=== PATIENT | female | born 1955 | race Caucasian/White ===

== ENCOUNTER 2021-01-30 13:54 | Outpatient (CLI) | payer MEDICARE, SELFPAY ==
--- NOTE | ~2021-01-30 | DEXA_ITS ---
Bone Density Report Name: Ana Driver Age: 65 Sex: Female Ethnicity: White Date of : 1955 Indication: postmenopausal; prior fracture; Referring Provider: Alfredo, Samy Study: Bone densitometry was performed. Exam Date: January 30, 2021 Accession number: [id number] Bone Density: Region BMD T-score Z-score Classification AP Spine (L1-L4) 0.802 -2.2 -0.4 Osteopenia Femoral Neck (Left) 0.600 -2.2 -0.7 Osteopenia Total Hip (Left) 0.776 -1.4 -0.1 Osteopenia Total Hip Bilateral Avg 0.802 -1.1 0.1 Osteopenia Femoral Neck (Right) 0.565 -2.6 -1.0 Osteoporosis Total Hip (Right) 0.827 -0.9 0.3 Normal World Health Organization criteria for BMD impression classify patients as: Normal (T-score at or above -1.0), Osteopenia (T-score between -1.0 and -2.5), or Osteoporosis (T-score at or below -2.5). 10-year Fracture Risk: FRAX not reported because: Some T-score for Spine Total or Hip Total or Femoral Neck at or below -2.5 Clinical Information Provided by Patient: Has had a low trauma fracture Patient maximum height was 60 Menopause Age: 48 No regular weight bearing exercise Onset of menses at age 13 Number of children 1 Impression: The patient has established osteoporosis, based on the Right Femoral Neck T-score and the existence of a prior fracture. The patient has risk factors, including: previous fracture. Discussion: HIGH RISK OF FRACTURE. BONE DENSITY IS UNDESIRABLY LOW AT ONE OR MORE SKELETAL SITES, CONSISTENT WITH POSTMENOPAUSAL OSTEOPOROSIS. This patient's lowest T-score, in a patient who has previously fractured, meets the World Health Organization's (WHO) criteria for severe osteoporosis. In untreated patients, the risk of osteoporotic fracture increases approximately two-fold for each 1.0 SD decrease in T-score. Low bone density is not the only risk factor for fracture; also consider factors such as patient's age, frailty or poor health, risk of falling, risk of injury, previous osteoporotic fracture, family history of osteoporosis, cigarette smoking, low body weight, etc. Not everyone with low bone mineral density has osteoporosis; osteomalacia and other metabolic bone disorders should also be considered. Patients who have osteoporosis should be evaluated for specific diseases and conditions (secondary causes) that may cause or contribute to bone loss. The [place] [employer]ocrinologists (AACE) and National Osteoporosis Foundation (NOF) recommend pharmacologic intervention for all postmenopausal women whose T-score is in this range. The patient should follow a healthful lifestyle (good nutrition with adequate calcium and vitamin D, and appropriate weight-bearing exercise). Follow-Up: Consider a repeat BMD and Vertebral Fracture Assessment (VFA) exam in 2 years or sooner if medically neces
--- NOTE | ~2021-01-30 | MM_ITS ---
EXAMINATION: MM screening tita BI w bria HISTORY: Screening TECHNIQUE: Craniocaudal and mediolateral oblique 3-D tomosynthesis images were obtained and synthetic 2-D images were generated. CAD analysis was submitted and interpreted. COMPARISON: 08/02/2018 BREAST PARENCHYMAL COMPOSITION: There are scattered areas of fibroglandular density. FINDINGS: There is no evidence of suspicious mass, calcification, or architectural distortion to sugg est malignancy in either breast. There has been no suspicious interval change. IMPRESSION: 1. No mammographic evidence of malignancy. 2. Recommend routine screening mammography in one year. BI-RADS Category 1: Negative Reviewed, dictated and finalized at location A.
== END 2021-01-30 13:55 | disposition home or self-care (01) ==
LOC: ANHIMG 14:00
PROVIDERS: PCP Anesthesiology; Visit Provider Student in an Organized Health Care Education/Training Program
DX: Z12.31 Encounter for screening mammogram for malignant neoplasm of breast (principal); Z78.0 Asymptomatic menopausal state; M85.89 Other specified disorders of bone density and structure, multiple sites; M81.0 Age-related osteoporosis without current pathological fracture
CPT/HCPCS: 77063; 77067; 77080

== ENCOUNTER 2022-03-29 03:52 | Inpatient (IN) | payer MEDICARE, SELFPAY ==
[2022-03-29] VITALS (10 sets, daily range): BP systolic 145–160; BP diastolic 77–89; PULSE 59–102; RESP 18–24; TEMP 36.5–36.9; O2SAT 92–100; BMI 35.9
--- NOTE | ~2022-03-29 | XR_ITS ---
EXAMINATION: XR chest 1V portable INDICATION: Chest pain after fall TECHNIQUE: Portable AP chest at 0751 hours COMPARISON: 03/28/2015 FINDINGS: The right costophrenic angle is excluded. No pleural effusion or pneumothorax identified. T he lungs are free of acute opacities. The cardiomediastinal silhouette is normal. Suture anchors are noted in the right humeral head. IMPRESSION: 1. No acute cardiopulmonary abnormality. Reviewed, dictated and finalized at location A.
--- NOTE | ~2022-03-29 | XR_ITS ---
EXAMINATION: XR hip RT 2V w AP pelvis INDICATION: Right hip pain, initial encounter TECHNIQUE: AP view the pelvis and two views of the right hip are obtained. COMPARISON: None available FINDINGS: There is an acute, traumatic, closed, oblique fracture of the proximal femoral shaft extend ing posterolaterally from the lesser trochanter to the outer cortex of the proximal femur. The femora l head is well-seated in the acetabulum. No additional fracture is identified. IMPRESSION: 1. Acute oblique fracture of the right proximal femoral shaft. Reviewed, dictated and finalized at location A.
--- NOTE | ~2022-03-29 | XR_ITS ---
EXAMINATION: XR surgery orthopedic DATE: 03/30/2022 11:45 CDT INDICATION: right IT nail . TECHNIQUE: 7 fluoroscopic images of the right hip and femur were obtained during right IT the nail pl acement performed by the surgeon. I was not present in the operating room. Fluoroscopy exposure time was 234 seconds. Cumulative dose was 63.18 mGy. COMPARISON: X-ray right hip 03/29/2022. FINDINGS: IT nail and intramedullary tika fixation of the proximal right femoral fracture into near-anatomic ali gnment. IMPRESSION: Fluoroscopic documentation of right IT nail placement. Please refer to the operative note for complet e procedural details . Reviewed, dictated and finalized at location K. IMPRESSION: Fluoroscopic documentation of right IT nail placement. Please refer to the oper ative note for complete procedural details .
--- NOTE | 2022-03-29 07:30 | ECG_ITS ---
Measurements Intervals [place] Rate: 83 P: 52 MD: 146 QRS: -22 QRSD: 113 T: 33 QT: 417 QTc: 491 Interpretive Statements SINUS RHYTHM LOW QRS VOLTAGE IN PRECORDIAL LEADS [QRS DEFLECTION < 1.0 mV IN CHEST LEADS] POSSIBLE RIGHT VENTRICULAR CONDUCTION DELAY [RSR (QR) IN V1/V2] INFERIOR MYOCARDIAL INFARCTION , PROBABLY OLD WITH POSTERIOR EXTENSION [40+ ms Q WAVE AND/OR ST/T ABNORMALITY IN II/aVFPROMINE INCOMPLETE RIGHT BUNDLE-BRANCH BLOCK ABNORMAL ECG Electronically Signed On 03-29-2022 10:07:07 CDT by Demarco Ledezma M.D.
--- NOTE | 2022-03-29 07:40 | ED.FALL ---
HPI - Fall General Chief Complaint: Fall Stated Complaint: Hip Pain Time Seen by Provider: 03/29/22 07:03 History of Present Illness HPI Narrative: Patient is a 66-year-old female who presents ER status post fall. She was stepping off some concrete when she fell onto her right side. Sudden onset pain to the right hip. Did not strike her head or lose consciousness. No fevers or chills or sweats. No numbness or tingling to the affected extremity. Any type of movement causes extreme pain in the hip. Related Data Home Medications Medication Instructions Recorded Confirmed glipizide 2.5 mg tablet, extended 2.5 mg PO DAILY 03/29/22 03/29/22 release 24 hr naproxen sodium 220 mg tablet 440 mg PO DAILY PRN Headache 03/29/22 03/29/22 (Aleve) Allergies Allergy/AdvReac Type Severity Reaction Status Date / Time No Known Allergies Allergy Verified 03/29/22 09:57 Review of Systems Review of Systems: All systems reviewed & are unremarkable except as noted in HPI and below Constitutional: Constitutional: Denies chills, Denies fatigue and Denies fever(s) Cardiovascular: Cardiovascular: Denies chest pain, Denies rapid heart rate and Denies radiating jaw, neck or arm pain Respiratory: Respiratory: Denies cough and Denies dyspnea Gastrointestinal: Gastrointestinal: Denies abdominal pain, Denies nausea and Denies vomiting Musculoskeletal: Musculoskeletal: Denies back pain, Reports arthralgias and Denies joint swelling Neurologic: Denies syncope, Denies focal weakness and Denies numbness PMFSH Past Medical History Medical History (Updated 03/29/22 @ 19:06 by Nilton Kyle MD) Diabetes Surgical History Surgical History H/O repair of rotator cuff H/O tubal ligation History of cataract extraction History of elbow surgery History of tonsillectomy Family History Family History Mother Family history of type 2 diabetes mellitus Patient's mother is Father Patient's father is Acute myocardial infarction Social History Social History (Updated 03/29/22 @ 18:39 by Leah Gardner NP) Social History: the patient lives at home with her who is a durable power commercial attorney for healthcare. The patient has 1 child which is a daughter. 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 She drinks 6-8 drinks and about a week. She denies any marijuana or illicit drugs. Code status full code Smoking status: Never smoker Second hand tobacco smoke exposure: Yes (Spouse former smoker) Alcohol intake: current Drinks per week: 6 Substance use: never Spiritual care concerns: No Exam Narrative: GENERAL: Well-appearing, well-nourished, and in no acute distress. HEAD: Normocephalic, atraumatic. EYES: PERRL and EOMI. ENT: Mucous membranes moist. CHEST: Clear to auscultation. No respiratory distress. HEART: Regular rate and rhythm. Normal peripheral pulses. ABDOMEN: Soft, nontender, nondistended. EXTREMITIES: Tender palpation right hip with limited range of motion due to pain. No tenderness of the right knee or foot. Distal pulses intact as is sensation. No abnormalities to the upper extremities or left lower extremity. SKIN: Warm, dry, no rash. NEURO: No focal deficits. Alert and oriented x3. PSYCH: Normal mood and affect. Course Course Emergency Course: Admit to hospitalist. Orthopedic surgeon consulted. Vital Signs Vital signs: Vital Signs Temperature 97.7 F 03/29/22 03:52 Pulse Rate 59 L 03/29/22 03:52 Respiratory Rate 20 03/29/22 03:52 Blood Pressure 147/79 H 03/29/22 03:52 Pulse Oximetry 96 03/29/22 03:52 Oxygen Delivery Room Air 03/29/22 03:52 Temperature 98.4 F 03/29/22 14:57 Pulse Rate 102 H 03/29/22 14:57 Respiratory Rate 18 03/29/22 14:57 Blood Pressure 146/7
[2022-03-29] MEDS: MORPHINE SULFATE (*CRX) 4 MG/ML INJ IV PUSH ×4 (07:42→22:31)
[2022-03-29 07:47] LABS: Basophils Absolute Auto 0.1 K/mm3 (0.0-0.1); Basophils Percent Auto 0.5 % (0.2-1.2); Hematocrit 40.5 % (37.0-47.0); Hemoglobin 13.7 g/dL (12.0-15.0); Immature Granulocyte Absolute 0.09 K/mm3 (0.00-0.031); Immature Granulocyte Percent A 0.6 % (0-0.5); Immature Platelet Fraction Pct 18.1 % (0.9-11.2); Lymphocytes Percent Auto 9.9 % (18.3-44.2); Mean Corpuscular HGB Conc 33.8 g/dl (32-36); Mean Corpuscular Hemoglobin 32.1 pg (26-34); Mean Corpuscular Volume 94.8 fl (80-100); Mean Platelet Volume 12.9 fl (7.4-10.4); Monocytes Absolute Auto 0.9 K/mm3 (0.1-0.6); Monocytes Percent Auto 5.8 % (2.6-8.5); Neutrophils Absolute Auto 12.7 K/mm3 (1.3-6.7); Neutrophils Percent Auto 83.2 % (45.5-73.1); Platelet Count Result 169 k/mm3 (150-375); Red Blood Count 4.27 M/mm3 (4.2-5.4); Red Cell Distribution Width 12.7 % (11.5-14.5); White Blood Count 15.2 K/mm3 (4.5-10.0)
[2022-03-29 07:55] LABS: Prothrombin Time 13.2 Seconds (11.1-14.7)
[2022-03-29 07:56] LABS: Alanine Aminotransferase 47 U/L (6-35); Albumin Level 4.6 g/dL (3.5-5.1); Alkaline Phosphatase 94 U/L (38-126); Anion Gap 14 mmol/L (8-16); Aspartate Amino Transferase 46 U/L (14-36); Bilirubin,Total 0.3 mg/dL (0.2-1.3); Blood Urea Nitrogen 10 mg/dL (7-17); Calcium 8.8 mg/dL (8.4-10.2); Carbon Dioxide 22 mmol/L (22-30); Chloride 100 mmol/L (98-107); Estimated CRCL calculation 57 ml/min; Estimated Glomerular Filt Rate > 60; Glucose 186 mg/dL (65-110); Partial Thromboplastin Time 26.3 SECONDS (22.3-36.8); Sodium 136 mmol/L (137-145)
[2022-03-29 08:50] LABS: SARS-CoV-2 RNA PCR Negative
--- NOTE | 2022-03-29 09:53 | ADMGEN ---
This patient, Ana Driver, was admitted to [facility] Surg Room 322-01 at 0945. Patient/family oriented to hospital policies and general routines including ID bracelet, bed and alarms, visiting hours, pain management, procedures, bathroom and other care routines, personal items, smoking policy, room service/diet, and visiting hours. Information on how to activate the Rapid Response Team has been discussed. Patient/Family are encouraged to report perceived risks to care and to ask questions if they do not understand what they are told or what they should do.
[2022-03-29] MEDS: SODIUM CHLORIDE 0.9% IV 1,000 ML 125 ML IV CONT ×2 (10:28→20:11)
[2022-03-29 12:17] LABS: Glucose Point of Care 170 mg/dl (65-105)
[2022-03-29] MEDS: oxyCODONE/ACETAMINOPHEN (*CRX) 5-325 MG TABLET 1 TABLET PO (13:11)
--- NOTE | 2022-03-29 15:49 | PM.CNOR ---
Assessment and Plan Assessment and plan (1) Subtrochanteric fracture of right femur: Code(s): S72.21XA - Displaced subtrochanteric fracture of right femur, initial encounter for closed fracture Status: Acute Assessment and Plan: Displaced, comminuted subtrochanteric fracture of the right femur. Will benefit from ORIF with cephalomedullary nail. Risks, benefits, and alternatives discussed. Complex fracture prior pattern will likely require additional reduction techniques and likely need opening of the fracture through a lateral femoral exposure. History of Present Illness HPI Consult date: 03/29/22 Chief complaint: Intertrochanteric Fracture Right Hip Narrative: Patient complains of acute hip pain. Fell from standing height. Admitted through the emergency room for definitive managemenet. No previous hip pain. Uncomfortable at rest. No numbness, tingling, or other associated symptoms. Review of Systems Review of Systems: Denies loss of consciousness. All systems reviewed & are unremarkable except as noted in HPI and below PMFSH Past Medical History Medical History Diabetes Surgical History Surgical History History of elbow surgery History of tonsillectomy Family History Family History Mother Family history of type 2 diabetes mellitus Patient's mother is Father Patient's father is Acute myocardial infarction Social History Social History Smoking status: Never smoker Second hand tobacco smoke exposure: Yes (Spouse former smoker) Alcohol intake: current Drinks per week: 6 Substance use: never Spiritual care concerns: No Meds Home Medications and Allergies Home Medications Medication Instructions Recorded Confirmed Type glipizide 2.5 mg tablet, extended 2.5 mg PO DAILY 03/29/22 03/29/22 History release 24 hr naproxen sodium 220 mg tablet 440 mg PO DAILY PRN Headache 03/29/22 03/29/22 History (Aleve) Allergies Allergy/AdvReac Type Severity Reaction Status Date / Time No Known Allergies Allergy Verified 03/29/22 09:57 Vital Signs Vital Signs - 24 hr 03/29/22 03:52 03/29/22 08:30 03/29/22 08:31 Temperature 36.5 C Pulse Rate 59 L 86 79 Respiratory Rate 20 22 H 22 H Blood Pressure 147/79 H Pulse Oximetry 96 94 95 Oxygen Delivery Room Air 03/29/22 08:45 03/29/22 09:00 03/29/22 10:00 Temperature 36.9 C Pulse Rate 83 87 74 Respiratory Rate 22 H 24 H 18 Blood Pressure 160/89 H Pulse Oximetry 92 95 100 Oxygen Delivery 03/29/22 14:15 03/29/22 14:57 Temperature 36.9 C Pulse Rate 102 H Respiratory Rate 18 Blood Pressure 146/77 H Pulse Oximetry 99 99 Oxygen Delivery Room Air Exam Narrative: Lower extremity shortened and externally rotated. Moderate swelling. Const: General: alert and uncomfortable Nutritional Appearance: obese Orientation/consciousness: patient oriented x3 Eyes: General: appearance normal, both eyes and all related structures Resp: Effort & Inspection: normal respiratory effort GI: GI Palp: Yes Soft to palpation and No Guarding due to palpation present (GI) Urinary Catheter: Urinary Catheter: patent and draining and urine clear Skin: General skin exam: no rashes or lesions noted Neuro: Speech: normal speech Other: Wiggles toes well. Capillary refill brisk. Distal light touch sensation intact. Dorsalis pedis pulse palpable. Extrem: Other: No edema. Psych: Mental Status: mental status grossly normal Results Labs Result Diagrams: 03/29/22 07:36 03/29/22 07:36 Labs: Abnormal lab results 03/29/22 03/29/22 03/29/22 Range/Units 07:36 07:36 12:12 WBC 15.2 H (4.5-10.0) K
[2022-03-29 16:10] LABS: Glucose Point of Care 154 mg/dl (65-105)
--- NOTE | 2022-03-29 16:28 | WPDANESEPP ---
Anes - Eval Pre Procedure Procedure: ORIF RIGHT HIP FRACTURE Date/Time: 03/29/22 16:28 Surgeon: BORIS Preop Diagnosis: RIGHT HIP FRACTURE Pre Op Diagnosis: Intertrochanteric Fracture Right Hip Patient Data Age: 66 Gender: F Height: 1.52 m Weight: 83.4 kg Last Vital Signs Temp 98.4 F 03/29/22 14:57 Pulse 102 H 03/29/22 14:57 Resp 18 03/29/22 14:57 BP 146/77 H 03/29/22 14:57 Pulse Ox 99 03/29/22 14:57 O2 Del Method Room Air 03/29/22 14:15 Allergies Allergy/AdvReac Type Severity Reaction Status Date / Time No Known Allergies Allergy Verified 03/29/22 09:57 Home Medications Medication Instructions Recorded Confirmed Type glipizide 2.5 mg tablet, extended 2.5 mg PO DAILY 03/29/22 03/29/22 History release 24 hr naproxen sodium 220 mg tablet 440 mg PO DAILY PRN Headache 03/29/22 03/29/22 History (Aleve) Laboratory Tests 03/29/22 03/29/22 03/29/22 07:36 07:36 07:36 WBC 15.2 K/mm3 H K/mm3 (4.5-10.0) RBC 4.27 M/mm3 M/mm3 (4.2-5.4) Hgb 13.7 g/dL g/dL (12.0-15.0) Hct 40.5 % % (37.0-47.0) MCV 94.8 fl fl (80-100) MCH 32.1 pg pg (26-34) MCHC 33.8 g/dl g/dl (32-36) RDW 12.7 % % (11.5-14.5) Plt Count 169 k/mm3 k/mm3 (150-375) MPV 12.9 fl H fl (7.4-10.4) Immature Gran % (Auto) 0.6 % H % (0-0.5) Neut % (Auto) 83.2 % H % (45.5-73.1) Lymph % (Auto) 9.9 % L % (18.3-44.2) Millard % (Auto) 5.8 % % (2.6-8.5) Eos % (Auto) 0.0 % % (0-4.4) Baso % (Auto) 0.5 % % (0.2-1.2) Lymph # (Auto) 1.50 K/mm3 K/mm3 (0.9-3.2) Millard # (Auto) 0.9 K/mm3 H K/mm3 (0.1-0.6) Eos # (Auto) 0.0 K/mm3 K/mm3 (0-0.3) Baso # (Auto) 0.1 K/mm3 K/mm3 (0.0-0.1) Abs Immat Gran (auto) 0.09 K/mm3 H K/mm3 (0.00-0.031) Absolute Neuts (auto) 12.7 K/mm3 H K/mm3 (1.3-6.7) Absolute Nucleated RBC 0.0 K/mm3 K/mm3 (0.0-0.012) Nucleated RBC % 0.0 % % (0.0-0.2) % Immature Plt Fraction 18.1 % H % (0.9-11.2) PT 13.2 Seconds Seconds (11.1-14.7) INR 1.0 APTT 26.3 SECONDS SECONDS (22.3-36.8) Sodium 136 mmol/L L mmol/L (137-145) Potassium 4.0 mmol/L mmol/L (3.4-5.0) Chloride 100 mmol/L mmol/L (98-107) Carbon Dioxide 22 mmol/L mmol/L (22-30) Anion Gap 14 mmol/L mmol/L (8-16) BUN 10 mg/dL mg/dL (7-17) Creatinine 0.80 mg/dL mg/dL (0.7-1.0) Estim Creat Clear Calc 57 ml/min ml/min Estimated GFR > 60 (59 - ) Glucose 186 mg/dL H mg/dL (65-110) POC Capillary Glucose Calcium 8.8 mg/dL mg/dL (8.4-10.2) Total Bilirubin 0.3 mg/dL mg/dL (0.2-1.3) AST 46 U/L H U/L (14-36) ALT 47 U/L H U/L (6-35) Alkaline Phosphatase 94 U/L U/L (38-126) Total Protein 8.0 g/dL g/dL (6.3-8.2) Albumin 4.6 g/dL g/dL (3.5-5.1) SARS-CoV-2 RNA (RT-PCR) 03/29/22 03/29/22 03/29/22 08:00 12:12 16:03 WBC RBC Hgb Hct MCV MCH MCHC RDW Plt Count MPV Immature Gran % (Auto) Neut % (Auto) Lymph % (Auto) Millard % (Auto) Eos % (Auto) Baso % (Auto) Lymph # (Auto) Millard # (Auto) Eos # (Auto) Baso # (Auto) Abs Immat Gran (auto) Absolute Neuts (auto) Absolute Nucleated RBC Nucleated RBC % % Immature Plt Fraction PT INR APTT Sodium Potassium Chloride Carbon Dioxide
--- NOTE | 2022-03-29 18:10 | PM.IMHP ---
H&P: HPI History of Present Illness Date/Time: 03/29/22 18:10 Chief Complaint: right hip pain Narrative: this is a 66-year-old female patient he presented to ER status post fall. The patient was stepping off of a concrete step and was deeper than what she thought. The patient fell on her right side but did not hit her head. she did not lose consciousness. The patient was not able to get off the ground. she has and externally rotated right hip and shortened. White count 15.2. block causes 154. COVID was negative. hip and pelvis x-ray was read as acute oblique fracture of right proximal Femoral shaft. chest x-ray was read as no acute cardiopulmonary Abnormality. IV fluids were started. Orthopedic has been consulted and has already seen the patient. The plan is for surgery tomorrow. She was given morphine in the emergency room. Patient was initially admitted for observation and then changed to inpatient status. Review of Systems Review of Systems: See HPI All systems reviewed & are unremarkable except as noted in HPI and below Constitutional: Constitutional: Reports as per HPI and Reports no additional constitutional complaints Eyes: Eyes: Reports as per HPI and Reports no additional eye complaints ENT: Reports system reviewed and no additional complaints, except as documented and Reports Normal hearing present Cardiovascular: Cardiovascular: Reports no additional cardiovascular complaints Respiratory: Respiratory: Reports no additional respiratory complaints and Reports no additional respiratory complaints Gastrointestinal: Gastrointestinal: Reports as per HPI and Reports no additional gastrointestinal complaints Musculoskeletal: Musculoskeletal: Reports no additional musculoskeletal complaints Integumentary/Breasts: Skin/Breast: Reports system reviewed and no additional complaints, except as docu and Reports as per HPI Neurologic: Reports system reviewed and no additional complaints, except as documented, Reports as per HPI and Reports Normal hearing present Psychiatric: Psychiatric: Reports no additional psychiatric complaints and Reports as per HPI Endocrine: Endocrine: Reports no additional endocrine complaints Hematologic/Lymphatic: Hematologic/Lymphatic: Reports no additional hematologic/lymphatic complaints Allergic/Immunologic: Allergic/Immunologic: Reports no additional allergic/immunologic complaints [facility] Past Medical History Medical History (Updated 03/29/22 @ 18:42 by Leah Gardner NP) Diabetes Surgical History Surgical History H/O repair of rotator cuff H/O tubal ligation History of cataract extraction History of elbow surgery History of tonsillectomy Family History Family History Mother Family history of type 2 diabetes mellitus Patient's mother is Father Patient's father is Acute myocardial infarction Social History Social History (Updated 03/29/22 @ 18:39 by Leah Gardner NP) Social History: the patient lives at home with her who is a durable power deputy prosecuting attorney for healthcare. The patient has 1 child which is a daughter. 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 She drinks 6-8 drinks and about a week. She denies any marijuana or illicit drugs. Code status full code Smoking status: Never smoker Second hand tobacco smoke exposure: Yes (Spouse former smoker) Alcohol intake: current Drinks per week: 6 Substance use: never Spiritual care concerns: No Meds Home Medications and Allergies Home Medications Medication Instructions Recorded Confirmed Type glipizide 2.5 mg tablet, extended 2.5 mg PO DAILY 03/29/22 03/29/22 History release 24 hr naproxen sodium 220 mg tablet 440 mg PO DAILY PRN Headache 03/29/22 03/29/22 History (Jud)
[2022-03-29] MEDS: oxyCODONE/ACETAMINOPHEN (*CRX) 10-325 MG TABLET 1 TAB PO (20:11)
[2022-03-29 22:29] LABS: Glucose Point of Care 173 mg/dl (65-105)
[2022-03-30] VITALS (11 sets, daily range): BP systolic 126–168; BP diastolic 58–95; PULSE 68–94; RESP 15–24; TEMP 36–36.8; O2SAT 92–100
[2022-03-30] MEDS: SODIUM CHLORIDE 0.9% IV 1,000 ML 125 ML IV CONT (04:24)
[2022-03-30] MEDS: MORPHINE SULFATE (*CRX) 4 MG/ML INJ IV PUSH ×3 (04:25→10:24)
[2022-03-30 05:59] LABS: Basophils Absolute Auto 0.1 K/mm3 (0.0-0.1); Basophils Percent Auto 0.6 % (0.2-1.2); Eosinophils Percent Auto 0.2 % (0-4.4); Hematocrit 31.8 % (37.0-47.0); Hemoglobin 10.8 g/dL (12.0-15.0); Immature Granulocyte Absolute 0.03 K/mm3 (0.00-0.031); Immature Granulocyte Percent A 0.4 % (0-0.5); Immature Platelet Fraction Pct 16.3 % (0.9-11.2); Lymphocytes Absolute Auto 2.04 K/mm3 (0.9-3.2); Lymphocytes Percent Auto 23.9 % (18.3-44.2); Mean Corpuscular Hemoglobin 32.2 pg (26-34); Mean Corpuscular Volume 94.9 fl (80-100); Mean Platelet Volume 13.9 fl (7.4-10.4); Monocytes Absolute Auto 1.1 K/mm3 (0.1-0.6); Monocytes Percent Auto 12.4 % (2.6-8.5); Neutrophils Absolute Auto 5.3 K/mm3 (1.3-6.7); Neutrophils Percent Auto 62.5 % (45.5-73.1); Platelet Count Result 125 k/mm3 (150-375); Red Blood Count 3.35 M/mm3 (4.2-5.4); Red Cell Distribution Width 12.9 % (11.5-14.5); White Blood Count 8.5 K/mm3 (4.5-10.0)
[2022-03-30 06:13] LABS: Lactic Acid Reflex 0.9 mmol/L (0.7-2.0)
[2022-03-30 06:20] LABS: Alanine Aminotransferase 30 U/L (6-35); Albumin Level 3.3 g/dL (3.5-5.1); Alkaline Phosphatase 69 U/L (38-126); Anion Gap 7 mmol/L (8-16); Aspartate Amino Transferase 29 U/L (14-36); Bilirubin,Total 0.7 mg/dL (0.2-1.3); Blood Urea Nitrogen 11 mg/dL (7-17); CRP 4.1 mg/dL (<1.0); Calcium 8.2 mg/dL (8.4-10.2); Carbon Dioxide 24 mmol/L (22-30); Chloride 102 mmol/L (98-107); Estimated CRCL calculation 88 ml/min; Estimated Glomerular Filt Rate > 60; Glucose 168 mg/dL (65-110); Lactate Dehydrogenase 127 U/L (120-246); Magnesium 2.1 mg/dL (1.6-2.3); Potassium 3.7 mmol/L (3.4-5.0); Sodium 133 mmol/L (137-145)
[2022-03-30 06:56] LABS: Hemoglobin A1C 6.5 % (<5.7)
[2022-03-30 08:05] LABS: Glucose Point of Care 120 mg/dl (65-105)
[2022-03-30 08:47] LABS: Free T4 Free Thyroxine Reflex 1.18 ng/dL (0.78-2.19)
--- NOTE | 2022-03-30 09:40 | PM.IMPN ---
Progress Note: A&P Assessment and Plan (1) Subtrochanteric fracture of right femur: Code(s): S72.21XA - Displaced subtrochanteric fracture of right femur, initial encounter for closed fracture Status: Acute Assessment and Plan: Secondary to mechanical fall appreciate orthopedic surgery consultation planning for surgical intervention today supportive care. Analgesics available as needed continue Farrell catheter until patient is more mobile will need postoperative PT/OT postoperative wound care and DVT prophylaxis deferred to Orthopedic surgery (2) Diabetes: Code(s): E11.9 - Type 2 diabetes mellitus without complications Status: Acute Assessment and Plan: A1c is 6.5. Continue Accu-Cheks, sliding scale insulin, hypoglycemic protocol continue home glipizide (3) Normocytic anemia: Code(s): D64.9 - Anemia, unspecified Status: Acute Assessment and Plan: slight decline in H&H from presentation no active bleeding monitor H&H closely postoperatively Subjective Date/time seen: 03/30/22 09:40 Interval history: Date of service: 03/30/2022 Ana Driver is a 66-year-old female with a history of type 2 diabetes mellitus who is seen in follow-up for right hip fracture. She states she is doing as well as can be expected today. She complains of 8/10 pain in her right hip. she states her pain starts at the top of her knee and goes all the way up to the hip and describes it as a sharp sensation with any movements. she denies numbness or tingling of her lower extremities. She had a Farrell catheter placed last night because she was having pain with moving around to get on and off the bedpan. She has no issues with the Farrell catheter. Did not have dysuria or hematuria prior to Farrell placement. She denies abdominal pain, nausea, vomiting, fever, chills. No shortness of breath, cough, chest pain. Review of Systems Review of Systems: All systems reviewed & are unremarkable except as noted in HPI and below Exam Narrative: General: well-nourished, well-appearing 66-year-old female, sitting up in bed, comfortable, NARD Neuro: awake, alert and oriented x4, speech clear, no focal neuro deficits noted HEENMT: normocephalic, atraumatic, EOMI, sclerae anicteric Respiratory: clear to auscultation bilaterally, nonlabored breathing Cardio: regular rate, regular rhythm with S1-S2 Abdomen: nondistended, normoactive bowel sounds, soft, nontender to palpation Extremities: right hip is tender to palpation, bilateral lower extremities without edema, erythema, or tenderness to palpation, DP pulses 2+ bilaterally, able to wiggle toes bilaterally, sensation intact Skin: no rashes or lesions, warm and dry Psych: appropriate mood and affect, judgment and insight intact Objective Data Vital Signs Vital Signs: Vital Signs - 24 hr 03/29/22 10:00 03/29/22 14:15 03/29/22 14:57 Temperature 98.5 F 98.4 F Pulse Rate 74 102 H Respiratory Rate 18 18 Blood Pressure 160/89 H 146/77 H Pulse Oximetry 100 99 99 Oxygen Delivery Room Air 03/29/22 22:00 03/29/22 20:10 03/30/22 06:00 Temperature 98.0 F 96.8 F L Pulse Rate 87 102 H 88 Respiratory Rate 18 18 17 Blood Pressure 145/77 H 126/62 Pulse Oximetry 97 99 95 Oxygen Delivery Room Air Intake/Output Intake/Output: Intake & Output 03/27/22 03/28/22 03/29/22 03/30/22 23:59 23:59 23:59 23:59 Intake Total 1910 1200 Output Total 250 1625 Balance 1660 -425 Meds/Results Medications: Active Medications Generic Name Dose Route Start Last Admin Trade Name Freq PRN Reason Stop Dose Admin Dextrose 12.5 gm 03/29/22 18:11 Dextrose 50% 25 Gm/50 Ml Syringe IV PUSH PRN PRN Hypoglycemia Protocol Glipizide 2.5 mg 03/30/22 08:00 Glipizide Xl 2.5 Mg Tab.Er.24 PO DAILY@0800 KAYLIE Glucagon 1 mg 03/29/22 18:11 Glucagon For Inj 1 Mg Vial IM PRN PRN
--- NOTE | 2022-03-30 10:40 | PC.NURSE ---
To OR via bed.
--- NOTE | 2022-03-30 11:11 | P.PNAN_ITS ---
Anes - Eval Final PreProcedure Day of Procedure 03/30/22 11:11 Patient weight: obese Heart: regular rate and rhythm Lungs: clear to auscultation Airway: Mallampati scale class III Neurological: alert and oriented Last oral intake: >/= 8 hours ASA classification: III Emergent: no Anesthetic plan: proceed Anesthesia type and monitoring: general ETT and standard monitoring Results Review: All pre-operative results and documents have been reviewed as part of the pre- operative evaluation. Informed Consent: The patient's anesthetic plan and its attendant risks and benefits were discussed with the patient/family/POA. Questions were solicited and answers provided to the satisfaction of the patient/family/POA.
[2022-03-30] MEDS: ceFAZolin 2 GM/D5W 50 ML 2 GM/50 ML BAG IVPB ×2 (11:13→18:15)
--- NOTE | 2022-03-30 11:18 | WPDHPUPDATE1 ---
History and Physical Update Update Date/Time: 03/30/22 11:18 History and Physical has been reviewed, including an updated exam of the patient. There are NO changes in the patient's condition. Risks, benefits, and alternatives have been discussed and questions answered. Patient agrees to proceed with procedure.
--- NOTE | 2022-03-30 12:29 | SUR.OPER ---
patient arrives with maguire/surgeon aware of sediment and cloudy slight pink tints in u/a. received antibiotic no orders received.
[2022-03-30] MEDS: LACTATED RINGERS 1,000 ML 30 ML IV CONT (14:02)
[2022-03-30 14:08] LABS: Glucose Point of Care 164 mg/dl (65-105)
--- NOTE | 2022-03-30 14:16 | W.PM.PROC2 ---
Procedure Note - Detailed Date of Procedure 03/30/22 Pre-op Diagnosis Subtrochanteric Fracture Right Hip Post-op Diagnosis Same Procedure Performed ORIF right hip fracture with cephalomedullary nail. Surgeon Kunal Gonzalez MD Acoustic Warfare Analyst Teresa Harman PA-C Anesthesia General Findings Significant comminution. Posterior comminution. The fracture was a fairly high subtroch. Some distal extension. Obese. Very good bone quality. Reduction was very good with simple traction. However there was some remaining lateral and posterior comminution that was reduced with a percutaneous ball spike tool. Description of Procedure The patient was given a general anesthetic, then carefully placed in fracture table. Sterile prep and drape performed in the usual fashion. Sterile curtain was used. Gentle traction was utilized to reduce the fracture. Fluoroscopy was used to confirm anatomic reduction and a proper placement of the implants. A longitudinal incision was created at the tip of the trochanter. The deep fascia was incised. The cannulated awl was used to open the proximal femur. The guidewire was placed across the fracture. The reamer was used to open the canal. The gamma nail was placed across the fracture site. A separate incision was made for placement of the cannulated guide sleeve. The guide pin was placed in the center of the femoral head. Appropriate measurement was taken. The pin was over reamed. The screw was placed with excellent purchase. Distal locking screw was placed through the dynamic hole using perfect ely shoshone technique. The jig was removed. The wound was irrigated. The deep fascia was closed with #1 Vicryl suture followed by 2-0 Vicryl suture and mauricio. Sterile dressing was applied. The patient was transferred to the recovery room in stable condition. There were no complications. Implants Arthrex 360 mm long nail. 85 mm lag screw. One distal locking screw. Estimated Blood Loss -200.0 Urine Output -125.0 Drains No Pathology None sent Complications No immediate complications Condition Stable Disposition PACU [facility] Billing Surgery - Charge Forward: Surgery Billing
--- NOTE | 2022-03-30 14:55 | PC.NURSE ---
Back from OR via bed.
[2022-03-30] MEDS: oxyCODONE/ACETAMINOPHEN (*CRX) 10-325 MG TABLET 1 TAB PO ×2 (15:23→18:53)
[2022-03-30 16:42] LABS: Glucose Point of Care 204 mg/dl (65-105)
[2022-03-30] MEDS: INSULIN ASPART (*BKC) 100 UNITS/ML SUB-Q (17:05)
[2022-03-30] MEDS: SENNA/DOCUSATE SODIUM TABLET 2 TAB PO (17:07)
[2022-03-30] MEDS: FAMOTIDINE 20 MG TABLET PO (20:07)
[2022-03-30 20:27] LABS: Glucose Point of Care 192 mg/dl (65-105)
[2022-03-31] MEDS: oxyCODONE/ACETAMINOPHEN (*CRX) 5-325 MG TABLET 1 TABLET PO (01:16)
[2022-03-31] MEDS: ceFAZolin 2 GM/D5W 50 ML 2 GM/50 ML BAG IVPB ×2 (02:13→11:23)
[2022-03-31] MEDS: CYCLOBENZAPRINE HCL 10 MG TABLET PO ×2 (02:13→11:02)
[2022-03-31 03:41] VITALS: BP 123/58; PULSE 96; RESP 18; TEMP 37.3; O2SAT 93
[2022-03-31] MEDS: MORPHINE SULFATE (*CRX) 4 MG/ML INJ IV PUSH ×3 (03:45→23:34)
[2022-03-31 06:20] LABS: Hematocrit 29.4 % (37.0-47.0); Hemoglobin 9.6 g/dL (12.0-15.0); Immature Platelet Fraction Pct 16.7 % (0.9-11.2); Mean Corpuscular HGB Conc 32.7 g/dl (32-36); Mean Corpuscular Hemoglobin 31.9 pg (26-34); Mean Corpuscular Volume 97.7 fl (80-100); Mean Platelet Volume 13.5 fl (7.4-10.4); Platelet Count Result 132 k/mm3 (150-375); Red Blood Count 3.01 M/mm3 (4.2-5.4); Red Cell Distribution Width 12.9 % (11.5-14.5); White Blood Count 10.5 K/mm3 (4.5-10.0)
[2022-03-31 06:29] LABS: Anion Gap 7 mmol/L (8-16); Blood Urea Nitrogen 6 mg/dL (7-17); Calcium 8.1 mg/dL (8.4-10.2); Carbon Dioxide 27 mmol/L (22-30); Chloride 98 mmol/L (98-107); Estimated CRCL calculation 75 ml/min; Estimated Glomerular Filt Rate > 60; Glucose 158 mg/dL (65-110); Potassium 3.5 mmol/L (3.4-5.0); Sodium 132 mmol/L (137-145)
[2022-03-31 08:12] LABS: Glucose Point of Care 128 mg/dl (65-105)
[2022-03-31] MEDS: ENOXAPARIN 40 MG/0.4 ML SYRINGE SUB-Q (08:17)
[2022-03-31] MEDS: glipiZIDE XL 2.5 MG TAB.ER.24 PO (08:17)
[2022-03-31] MEDS: FAMOTIDINE 20 MG TABLET PO ×2 (08:17→20:30)
[2022-03-31] MEDS: oxyCODONE/ACETAMINOPHEN (*CRX) 10-325 MG TABLET 1 TAB PO ×3 (08:24→22:08)
[2022-03-31 08:25] VITALS: BP 149/58; PULSE 92; RESP 16; TEMP 36.7; O2SAT 98
[2022-03-31 10:00] VITALS: O2SAT 98
[2022-03-31 11:15] LABS: Glucose Point of Care 213 mg/dl (65-105)
[2022-03-31] MEDS: INSULIN ASPART (*BKC) 100 UNITS/ML SUB-Q (11:38)
[2022-03-31 12:00] VITALS: BP 131/61; PULSE 101; RESP 16; TEMP 36.6; O2SAT 96
--- NOTE | 2022-03-31 12:03 | PM.IMPN ---
Progress Note: A&P Assessment and Plan (1) Subtrochanteric fracture of right femur: Code(s): S72.21XA - Displaced subtrochanteric fracture of right femur, initial encounter for closed fracture Status: Acute (2) Diabetes: Code(s): E11.9 - Type 2 diabetes mellitus without complications Status: Acute Assessment and Plan: (3) Normocytic anemia: Code(s): D64.9 - Anemia, unspecified Status: Acute Plan 66-year-old female with a history of type 2 diabetes mellitus presented with fall, found to have right hip fracture, orthopedics was consulted, s/p ORIF right hip fracture with cephalomedullary nail POD#1 1)Right Hip Fracture 2/2 mechanical fall appreciate orthopedic surgery consultation s/p ORIF right hip fracture with cephalomedullary nail POD#1 post op care as per orthopedics Pain control PT/OT post op DVT ppx 2)Diabetes Mellitus: BG check TID AC And HS c/w meal time insulin Hold glipizide 3)Anemia: Post operative drop in H/H noted Will monitor No bleeding noted Recheck H/H in AM 4)DVT ppx:Lovenox 5)Code:Full 6)Dispo:pending improvement Subjective Date/time seen: 03/31/22 12:03 Interval history: s/p right hip repair, POD#1 No acute events overnight passing gas, tolerating PO Review of Systems Review of Systems: All systems reviewed & are unremarkable except as noted in HPI and below Constitutional: Constitutional: Reports no additional constitutional complaints Eyes: Eyes: Reports no additional eye complaints ENT: Reports system reviewed and no additional complaints, except as documented Cardiovascular: Cardiovascular: Reports no additional cardiovascular complaints Respiratory: Respiratory: Reports no additional respiratory complaints Gastrointestinal: Gastrointestinal: Reports no additional gastrointestinal complaints Musculoskeletal: Comments: right hip pain at surgical site Neurologic: Reports system reviewed and no additional complaints, except as documented Psychiatric: Psychiatric: Reports no additional psychiatric complaints Exam Const: General: comfortable and no acute distress HENMT: Mouth: Yes moist mucous membranes Eyes: Sclera: sclerae normal Pupils: Equal, round and reactive pupils present Neck: Neck: supple Resp: Effort & Inspection: normal respiratory effort Auscultation: clear to auscultation bilaterally Cardio: Rate: regular rate Rhythm: regular rhythm GI: GI Palp: Yes Soft to palpation Auscultation: normal bowel sounds Neuro: Speech: normal speech Extrem: Other: right hip dressing present C/D/I Psych: Mental Status: mental status grossly normal Objective Data Vital Signs Vital Signs: Vital Signs - 24 hr 03/30/22 14:02 03/30/22 14:15 03/30/22 14:30 Temperature 98.3 F Pulse Rate 77 68 72 Respiratory Rate 15 18 18 Blood Pressure 143/79 H 153/69 H 163/83 H Pulse Oximetry 99 100 100 Oxygen Delivery Simple Face Mask Simple Face Mask Room Air Oxygen Flow Rate 6 6 03/30/22 14:45 03/30/22 14:55 03/30/22 15:10 Temperature 97.8 F 97.9 F Pulse Rate 86 80 85 Respiratory Rate 16 18 16 Blood Pressure 139/95 H 151/80 H 168/76 H Pulse Oximetry 96 96 97 Oxygen Delivery Room Air Oxygen Flow Rate 03/30/22 15:40 03/30/22 16:40 03/30/22 20:03 Temperature 97.9 F 97.8 F 97.4 F L Pulse Rate 94 90 89 Respiratory Rate 18 16 24 H Blood Pressure 149/74 H 157/70 H 133/58 L Pulse Oximetry 97 98 92 Oxygen Delivery Oxygen Flow Rate 03/30/22 23:31 03/31/22 03:41 03/31/22 08:25 Temperature 97.7 F 99.2 F 98.1 F Pulse Rate 94 96 92 Respiratory Rate 18 18 16 Blood Pressure 136/66 123/58 L 149/58 H Pulse Oximetry 94 93 98 Oxygen Delivery Oxygen Flow Rate 03/31/22 09:24 03/31/22 10:00 Temperature Pulse Rate Respiratory Rate Blood Pressure Pulse Oximetry 98 Oxygen Delivery Room Air Room Air Oxygen Flow Rate Intake/Output Intake/Output: I
[2022-03-31 14:00] VITALS: BP 123/67; PULSE 94; RESP 16; TEMP 36.5; O2SAT 98
--- NOTE | 2022-03-31 14:45 | WPDANESPN ---
Anes - Prog Note Post-Op Date/Time: 03/31/22 14:45 Cardiovascular status: other Respiratory status: normal Airway patency: baseline Mental status: baseline Post-Op hydration status: other Vital Signs: Last Vital Signs Temp 97.8 F 03/31/22 12:00 Pulse 101 H 03/31/22 12:00 Resp 16 03/31/22 12:00 BP 131/61 03/31/22 12:00 Pulse Ox 96 03/31/22 12:00 O2 Del Method Room Air 03/31/22 10:00 O2 Flow Rate 6 03/30/22 14:15 Pain Score (VAS): 0/10 I/O: Intake & Output 03/30/22 03/31/22 03/31/22 23:59 07:59 15:59 Intake Total 1600 250 240 Output Total 100 725 Balance 1500 -475 240 Laboratory Tests 03/31/22 06:03 03/31/22 06:03 03/30/22 03/30/22 03/31/22 16:37 20:08 06:03 WBC 10.5 H RBC 3.01 L Hgb 9.6 L Hct 29.4 L MCV 97.7 MCH 31.9 MCHC 32.7 RDW 12.9 Plt Count 132 L MPV 13.5 H % Immature Plt Fraction 16.7 H Sodium Potassium Chloride Carbon Dioxide Anion Gap BUN Creatinine Estim Creat Clear Calc Estimated GFR Glucose POC Capillary Glucose 204 H 192 H Calcium 03/31/22 03/31/22 03/31/22 06:03 07:57 11:11 WBC RBC Hgb Hct MCV MCH MCHC RDW Plt Count MPV % Immature Plt Fraction Sodium 132 L Potassium 3.5 Chloride 98 Carbon Dioxide 27 Anion Gap 7 L BUN 6 L D Creatinine 0.60 L Estim Creat Clear Calc 75 Estimated GFR > 60 Glucose 158 H POC Capillary Glucose 128 H 213 H Calcium 8.1 L Post-procedural complaints: none Patient Feedback: Patient satisfied with anesthetic care.
--- NOTE | 2022-03-31 14:50 | PM.PNORT ---
Progress Note: A&P Additional Plan Postop day 1: ORIF right hip fracture with cephalomedullary nail. Patient tolerated procedure well. No complications. Pain manageable with pain medication. No numbness or tingling. Patient may be weight bearing as tolerated with a walker. She states she has a lot of help at home. Her and daughter live with her and can help. She would like to be discharged home with home health. This is reasonable. May remove Farrell catheter today. Ortho instructions: DOS 03/30/22 D/C home with home health nursing and PT. Follow up in office in 6 weeks with xrays. Please call if you have nay questions or concerns. Call office for apt: [facility] . Wound Care: remove mauricio at 2 weeks post op (03/13/22). Daily dressing changes until healed. PT: WBAT with walker. Continue exercises. DVT prophylaxis: Xarelto 10 mg daily for 30 days total. Pain medication: Percocet 5/325 Subjective Subjective Date/Time Seen: 03/31/22 14:50 Principal diagnosis: Hip fracture. Interval history: Patient resting comfortably in bed. Moderate pain. No calf pain. No other complaints. Working with PT at the time of my visit. Review of Systems Review of Systems: All systems reviewed & are unremarkable except as noted in HPI and below Exam Narrative: Overweight 66 y/o female. No acute distress. Resting comfortably in bed. Alert and oriented. Dressing dry and intact without drainage. Calf and thigh soft. ROM limited due to pain. No hematoma. Distal pulses palpable. Light touch sensation intact. No varicosities. Objective Data Vital Signs Vital Signs: Vital Signs - 24 hr 03/30/22 14:55 03/30/22 15:10 03/30/22 15:40 Temperature 97.8 F 97.9 F 97.9 F Pulse Rate 80 85 94 Respiratory Rate 18 16 18 Blood Pressure 151/80 H 168/76 H 149/74 H Pulse Oximetry 96 97 97 Oxygen Delivery 03/30/22 16:40 03/30/22 20:03 03/30/22 23:31 Temperature 97.8 F 97.4 F L 97.7 F Pulse Rate 90 89 94 Respiratory Rate 16 24 H 18 Blood Pressure 157/70 H 133/58 L 136/66 Pulse Oximetry 98 92 94 Oxygen Delivery 03/31/22 03:41 03/31/22 08:25 03/31/22 09:24 Temperature 99.2 F 98.1 F Pulse Rate 96 92 Respiratory Rate 18 16 Blood Pressure 123/58 L 149/58 H Pulse Oximetry 93 98 Oxygen Delivery Room Air 03/31/22 10:00 03/31/22 08:15 03/31/22 12:00 Temperature 97.8 F Pulse Rate 101 H Respiratory Rate 16 Blood Pressure 131/61 Pulse Oximetry 98 96 Oxygen Delivery Room Air Room Air Intake/Output Intake/Output: Intake & Output 03/28/22 03/29/22 03/30/22 03/31/22 23:59 23:59 23:59 23:59 Intake Total 1910 2900 490 Output Total 250 2015 725 Balance 1664 030 -403 Meds/Results Medications: Active Medications Generic Name Dose Route Start Last Admin Trade Name Freq PRN Reason Stop Dose Admin Acetaminophen 650 mg 03/30/22 14:50 Acetaminophen 325 Mg Tablet PO Q6H PRN Pain Rated 1-3 Cyclobenzaprine HCl 10 mg 03/30/22 14:50 03/31/22 11:02 Cyclobenzaprine Hcl 10 Mg Tablet PO 10 mg Q8H PRN Administration Muscle Spasm Dextrose 12.5 gm 03/29/22 18:11 Dextrose 50% 25 Gm/50 Ml Syringe IV PUSH PRN PRN Hypoglycemia Protocol Enoxaparin Sodium 40 mg 03/31/22 09:00 03/31/22 08:17 Enoxaparin 40 Mg/0.4 Ml Syringe SUB-Q 40 mg DAILY KAYLIE Administration Famotidine 20 mg 03/30/22 21:00 03/31/22 08:17 Famotidine 20 Mg Tablet PO 20 mg Q12HR KAYLIE Administration Glipizide 2.5 mg 03/30/22 08:00 03/31/22 08:17 Glipizide Xl 2.5 Mg Tab.Er.24 PO 2.5 mg DAILY@0800 KAYLIE Administration Glucagon 1 mg 03/29/22 18:11 Glucagon For Inj 1 Mg Vial IM PRN PRN Hypoglycemia Protocol Glucose 15 gm 03/29/22 18:11 Glucose Oral Gel 15 Gm Of Glucse In 37.5 Gm Tube PO PRN PRN Hypoglycemia Protocol Dextrose 1,000 mls @ 100 mls/hr 03/29/22 18:11 Dextrose 5% 1,000 Ml IVPB
[2022-03-31 16:40] LABS: Glucose Point of Care 147 mg/dl (65-105)
[2022-03-31 22:00] VITALS: BP 135/59; PULSE 95; RESP 20; TEMP 35.7; O2SAT 92
[2022-04-01 05:46] LABS: Basophils Absolute Auto 0.1 K/mm3 (0.0-0.1); Basophils Percent Auto 0.5 % (0.2-1.2); Eosinophils Percent Auto 0.1 % (0-4.4); Hematocrit 26.5 % (37.0-47.0); Hemoglobin 8.8 g/dL (12.0-15.0); Immature Granulocyte Absolute 0.06 K/mm3 (0.00-0.031); Immature Granulocyte Percent A 0.5 % (0-0.5); Immature Platelet Fraction Pct 17.1 % (0.9-11.2); Lymphocytes Absolute Auto 2.08 K/mm3 (0.9-3.2); Lymphocytes Percent Auto 18.8 % (18.3-44.2); Mean Corpuscular HGB Conc 33.2 g/dl (32-36); Mean Corpuscular Hemoglobin 32.1 pg (26-34); Mean Corpuscular Volume 96.7 fl (80-100); Mean Platelet Volume 13.5 fl (7.4-10.4); Monocytes Absolute Auto 1.5 K/mm3 (0.1-0.6); Monocytes Percent Auto 13.5 % (2.6-8.5); Neutrophils Absolute Auto 7.4 K/mm3 (1.3-6.7); Neutrophils Percent Auto 66.6 % (45.5-73.1); Platelet Count Result 134 k/mm3 (150-375); Red Blood Count 2.74 M/mm3 (4.2-5.4); White Blood Count 11.1 K/mm3 (4.5-10.0)
[2022-04-01 06:00] VITALS: BP 143/50; PULSE 96; RESP 20; TEMP 36.2; O2SAT 95
[2022-04-01 06:21] LABS: Anion Gap 8 mmol/L (8-16); Blood Urea Nitrogen 9 mg/dL (7-17); Calcium 8.3 mg/dL (8.4-10.2); Carbon Dioxide 28 mmol/L (22-30); Chloride 95 mmol/L (98-107); Estimated CRCL calculation 75 ml/min; Estimated Glomerular Filt Rate > 60; Glucose 198 mg/dL (65-110); Potassium 3.7 mmol/L (3.4-5.0); Sodium 131 mmol/L (137-145)
[2022-04-01 07:59] LABS: Glucose Point of Care 185 mg/dl (65-105)
[2022-04-01 08:15] VITALS: O2SAT 98
[2022-04-01] MEDS: oxyCODONE/ACETAMINOPHEN (*CRX) 5-325 MG TABLET 1 TABLET PO (08:23)
[2022-04-01] MEDS: ENOXAPARIN 40 MG/0.4 ML SYRINGE SUB-Q (08:24)
[2022-04-01] MEDS: FAMOTIDINE 20 MG TABLET PO ×2 (08:24→20:16)
[2022-04-01] MEDS: polyethylene glycoL 3350 17 GM POWD.PACK PO (08:24)
[2022-04-01] MEDS: SENNA/DOCUSATE SODIUM TABLET 2 TAB PO ×2 (08:24→17:25)
[2022-04-01 11:39] LABS: Glucose Point of Care 194 mg/dl (65-105)
[2022-04-01 14:00] VITALS: BP 117/46; PULSE 79; RESP 15; TEMP 35.8; O2SAT 98
--- NOTE | 2022-04-01 16:36 | PM.PNORT ---
Progress Note: A&P Additional Plan Postop day 2: ORIF right hip fracture with cephalomedullary nail. Patient tolerated procedure well. No complications. Pain manageable with pain medication better today. Farrell removed. Tolerating PT better today. No numbness or tingling. Patient may be weight bearing as tolerated with a walker. She states she has a lot of help at home. Her and daughter live with her and can help. She would like to be discharged home with home health. This is reasonable. She is okay for discharge from ortho stand point. Will send order for Xarelto and Percocet. Ortho instructions: DOS 03/30/22 D/C home with home health nursing and PT. Follow up in office in 6 weeks with xrays. Please call if you have nay questions or concerns. Call office for apt: [facility] . Wound Care: remove mauricio at 2 weeks post op (03/13/22). Daily dressing changes until healed. PT: WBAT with walker. Continue exercises. DVT prophylaxis: Xarelto 10 mg daily for 30 days total. Pain medication: Percocet 5/325 Subjective Subjective Date/Time Seen: 04/01/22 16:36 Interval history: Patient resting comfortably in bed. Pain with motion. She tolerated pain better today. Worked well with PT. No other complaints. Review of Systems Review of Systems: All systems reviewed & are unremarkable except as noted in HPI and below Exam Narrative: Overweight 66 y/o female. No acute distress. Resting comfortably in bed. Alert and oriented. Dressing dry and intact with minimal drainage. Calf and thigh soft. ROM limited due to pain. No hematoma. Distal pulses palpable. Light touch sensation intact. No varicosities. Objective Data Vital Signs Vital Signs: Vital Signs - 24 hr 03/31/22 22:00 04/01/22 06:00 04/01/22 08:15 Temperature 96.2 F L 97.2 F L Pulse Rate 95 96 Respiratory Rate 20 20 Blood Pressure 135/59 L 143/50 H Pulse Oximetry 92 95 98 Oxygen Delivery Room Air 04/01/22 14:00 Temperature 96.4 F L Pulse Rate 79 Respiratory Rate 15 Blood Pressure 117/46 L Pulse Oximetry 98 Oxygen Delivery Intake/Output Intake/Output: Intake & Output 03/29/22 03/30/22 03/31/22 04/01/22 23:59 23:59 23:59 23:59 Intake Total 191 2900 1580 1230 Output Total 2014 550 Balance 1660 885 999 680 Meds/Results Medications: Active Medications Generic Name Dose Route Start Last Admin Trade Name Freq PRN Reason Stop Dose Admin Acetaminophen 650 mg 03/30/22 14:50 Acetaminophen 325 Mg Tablet PO Q6H PRN Pain Rated 1-3 Cyclobenzaprine HCl 10 mg 03/30/22 14:50 03/31/22 11:02 Cyclobenzaprine Hcl 10 Mg Tablet PO 10 mg Q8H PRN Administration Muscle Spasm Dextrose 12.5 gm 03/29/22 18:11 Dextrose 50% 25 Gm/50 Ml Syringe IV PUSH PRN PRN Hypoglycemia Protocol Enoxaparin Sodium 40 mg 03/31/22 09:00 04/01/22 08:24 Enoxaparin 40 Mg/0.4 Ml Syringe SUB-Q 40 mg DAILY KAYLIE Administration Famotidine 20 mg 03/30/22 21:00 04/01/22 08:24 Famotidine 20 Mg Tablet PO 20 mg Q12HR KAYLIE Administration Glipizide 2.5 mg 03/30/22 08:00 03/31/22 08:17 Glipizide Xl 2.5 Mg Tab.Er.24 PO 2.5 mg DAILY@0800 KAYLIE Administration Glucagon 1 mg 03/29/22 18:11 Glucagon For Inj 1 Mg Vial IM PRN PRN Hypoglycemia Protocol Glucose 15 gm 03/29/22 18:11 Glucose Oral Gel 15 Gm Of Glucse In 37.5 Gm Tube PO PRN PRN Hypoglycemia Protocol Dextrose 1,000 mls @ 100 mls/hr 03/29/22 18:11 Dextrose 5% 1,000 Ml IVPB PRN PRN Hypoglycemia Protocol Insulin Aspart 2 - 5 units 03/30/22 08:00 04/01/22 11:49 Insulin Aspart (*Bkc) 100 Units/Ml SUB-Q Not Given TIDWM KAYLIE Protocol Morphine Sulfate 2 mg 04/01/22 13:55 Morphine Sulfate (*Crx) 4 Mg/Ml Inj IV PUSH Q4H PRN Pain Rated 7-10 Ondansetron HCl 4 mg 04/01/22 13:55 Ondansetron Inj 4 Mg/2 Ml Vial IV PUSH
[2022-04-01 16:49] LABS: Glucose Point of Care 185 mg/dl (65-105)
--- NOTE | 2022-04-01 17:10 | PM.IMPN ---
Progress Note: A&P Assessment and Plan (1) Subtrochanteric fracture of right femur: Code(s): S72.21XA - Displaced subtrochanteric fracture of right femur, initial encounter for closed fracture Status: Acute Assessment and Plan: appreciate orthopedic surgery consultation s/p ORIF right hip fracture with cephalomedullary nail POD#2 post op care as per orthopedics Pain control - encouraged Percocet PO, wean IV morphine. PT/OT post op DVT ppx per ortho (2) Normocytic anemia: Code(s): D64.9 - Anemia, unspecified Status: Acute Assessment and Plan: Post operative drop in H/H noted with downward trend. Will monitor No bleeding noted Recheck H/H in AM (3) Diabetes: Code(s): E11.9 - Type 2 diabetes mellitus without complications Status: Chronic Assessment and Plan: BG check TID AC And HS c/w meal time insulin Hold glipizide while inpatient. Stable. Plan CODE STATUS: FULL CODE Disposition: home with home health and family. Time Spent With Patient Time with patient: 15 - 25 minutes Subjective Date/time seen: 04/01/22 17:10 Interval history: Patient is a 66-year-old female with a history of type 2 diabetes mellitus who presented following a fall, found to have right hip fracture, orthopedics was consulted, s/p ORIF right hip fracture with cephalomedullary nail POD#2 Patient reports persistent right hip pain that is moderate to severe. She reports taking percocet 5/325 mg tablet prior to therapy today and had slight improvement in pain. Patient has been taking multiple doses of IV morphine for breakthrough pain. Review of Systems Review of Systems: All systems reviewed & are unremarkable except as noted in HPI and below Exam Narrative: General: well-nourished, well-appearing adult female, sitting up in the chair, comfortable, NARD Neuro: awake, alert and oriented x4, speech clear, no focal neuro deficits noted HEENMT: normocephalic, atraumatic, EOMI, sclerae anicteric Respiratory: clear to auscultation bilaterally, nonlabored breathing Cardio: regular rate, regular rhythm with S1-S2. No murmurs, gallops or rubs. Abdomen: soft, obese, nondistended, normoactive bowel sounds, soft, nontender to palpation Extremities: right hip is tender to palpation, bilateral lower extremities without edema, erythema, or tenderness to palpation, DP pulses 2+ bilaterally, able to wiggle toes bilaterally, sensation intact Skin: no rashes or lesions, warm and dry. right hip aquacel dressing x3, 2 distal dressings clean, dry and intact, superior dressing with small shadow drainage. Psych: appropriate mood and affect, judgment and insight intact Objective Data Vital Signs Vital Signs: Vital Signs - 24 hr 03/31/22 22:00 04/01/22 06:00 04/01/22 08:15 Temperature 96.2 F L 97.2 F L Pulse Rate 95 96 Respiratory Rate 20 20 Blood Pressure 135/59 L 143/50 H Pulse Oximetry 92 95 98 Oxygen Delivery Room Air 04/01/22 14:00 Temperature 96.4 F L Pulse Rate 79 Respiratory Rate 15 Blood Pressure 117/46 L Pulse Oximetry 98 Oxygen Delivery Intake/Output Intake/Output: Intake & Output 03/29/22 03/30/22 03/31/22 04/01/22 23:59 23:59 23:59 23:59 Intake Total 1910 2900 1580 1230 Output Total 250 2014 1075 550 Balance 1660 885 505 680 Meds/Results Medications: Active Medications Generic Name Dose Route Start Last Admin Trade Name Freq PRN Reason Stop Dose Admin Acetaminophen 650 mg 03/30/22 14:50 Acetaminophen 325 Mg Tablet PO Q6H PRN Pain Rated 1-3 Cyclobenzaprine HCl 10 mg 03/30/22 14:50 03/31/22 11:02 Cyclobenzaprine Hcl 10 Mg Tablet PO 10 mg Q8H PRN Administration Muscle Spasm Dextrose 12.5 gm 03/29/22 18:11 Dextrose 50% 25 Gm/50 Ml Syringe IV PUSH PRN PRN Hypoglycemia Protocol Enoxaparin Sodium 40 mg 03/31/22 09:00 04/01/22 08:24 Enoxaparin 40 Mg/0.4 Ml Syringe SUB-Q
[2022-04-01 20:10] VITALS: PULSE 79; RESP 15; O2SAT 98
[2022-04-01 21:52] VITALS: O2SAT 94
[2022-04-01 22:00] VITALS: BP 141/60; PULSE 92; RESP 18; TEMP 36.6; O2SAT 93
[2022-04-02 06:00] VITALS: BP 146/67; PULSE 93; RESP 18; TEMP 36.6; O2SAT 98
[2022-04-02 06:35] LABS: Basophils Percent Auto 0.4 % (0.2-1.2); Eosinophils Percent Auto 0.3 % (0-4.4); Hematocrit 26.3 % (37.0-47.0); Hemoglobin 8.7 g/dL (12.0-15.0); Immature Granulocyte Absolute 0.06 K/mm3 (0.00-0.031); Immature Granulocyte Percent A 0.7 % (0-0.5); Immature Platelet Fraction Pct 16.2 % (0.9-11.2); Lymphocytes Absolute Auto 1.86 K/mm3 (0.9-3.2); Lymphocytes Percent Auto 20.9 % (18.3-44.2); Mean Corpuscular HGB Conc 33.1 g/dl (32-36); Mean Corpuscular Hemoglobin 32.1 pg (26-34); Mean Platelet Volume 13.5 fl (7.4-10.4); Monocytes Absolute Auto 1.3 K/mm3 (0.1-0.6); Monocytes Percent Auto 14.1 % (2.6-8.5); Neutrophils Absolute Auto 5.7 K/mm3 (1.3-6.7); Neutrophils Percent Auto 63.6 % (45.5-73.1); Platelet Count Result 152 k/mm3 (150-375); Red Blood Count 2.71 M/mm3 (4.2-5.4); Red Cell Distribution Width 12.9 % (11.5-14.5); White Blood Count 8.9 K/mm3 (4.5-10.0)
[2022-04-02 06:50] LABS: Anion Gap 10 mmol/L (8-16); Blood Urea Nitrogen 9 mg/dL (7-17); Calcium 8.5 mg/dL (8.4-10.2); Carbon Dioxide 28 mmol/L (22-30); Chloride 97 mmol/L (98-107); Estimated CRCL calculation 88 ml/min; Estimated Glomerular Filt Rate > 60; Glucose 150 mg/dL (65-110); Potassium 3.4 mmol/L (3.4-5.0); Sodium 135 mmol/L (137-145)
[2022-04-02 07:45] LABS: Glucose Point of Care 150 mg/dl (65-105)
[2022-04-02 08:00] VITALS: PULSE 93; RESP 18; O2SAT 98
[2022-04-02] MEDS: FAMOTIDINE 20 MG TABLET PO (09:50)
[2022-04-02] MEDS: RIVAROXABAN 10 MG TABLET PO (09:50)
[2022-04-02] MEDS: FERROUS SULFATE DRIED 142 MG TABCR PO (09:50)
[2022-04-02 11:52] LABS: Glucose Point of Care 167 mg/dl (65-105)
--- NOTE | 2022-04-02 13:03 | PM.PNORT ---
Progress Note: A&P Additional Plan Postop day 3: ORIF right hip fracture with cephalomedullary nail. Patient tolerated procedure well. No complications. Pain controlled. Progressing well with PT. She states she feels comfortable going home. No questions. We went over discharge instructions again today. No numbness or tingling. Patient may be weight bearing as tolerated with a walker. She states she has a lot of help at home. Her and daughter live with her and can help. She would like to be discharged home with home health. This is reasonable. She is okay for discharge from ortho stand point. Will send order for Xarelto and Percocet. Ortho instructions: DOS 03/30/22 D/C home with home health nursing and PT. Follow up in office in 6 weeks with xrays. Please call if you have nay questions or concerns. Call office for apt: [facility] . Wound Care: remove mauricio at 2 weeks post op (03/13/22). Daily dressing changes until healed. PT: WBAT with walker. Continue exercises. DVT prophylaxis: Xarelto 10 mg daily for 30 days total. Pain medication: Percocet 5/325 Subjective Subjective Date/Time Seen: 04/02/22 13:03 Interval history: Patient resting comfortably in bed. Pain controlled. Progressing well with PT. No other complaints. She states she feels comfortably going home. Review of Systems Review of Systems: All systems reviewed & are unremarkable except as noted in HPI and below Exam Narrative: Overweight 66 y/o female. No acute distress. Resting comfortably in bed. Alert and oriented. Dressing dry and intact with minimal drainage. Calf and thigh soft. ROM limited due to pain. No hematoma. Distal pulses palpable. Light touch sensation intact. No varicosities. Objective Data Vital Signs Vital Signs: Vital Signs - 24 hr 04/01/22 14:00 04/01/22 20:10 04/01/22 22:00 Temperature 96.4 F L 98 F Pulse Rate 79 79 92 Respiratory Rate 15 15 18 Blood Pressure 117/46 L 141/60 H Pulse Oximetry 98 98 93 Oxygen Delivery Room Air 04/01/22 21:52 04/02/22 06:00 04/02/22 08:00 Temperature 97.9 F Pulse Rate 93 93 Respiratory Rate 18 18 Blood Pressure 146/67 H Pulse Oximetry 94 98 98 Oxygen Delivery Room Air Room Air Intake/Output Intake/Output: Intake & Output 03/30/22 03/31/22 04/01/22 04/02/22 23:59 23:59 23:59 23:59 Intake Total 290 1580 1770 730 Output Total 2014 1130 470 2065 Balance 958 890 0424 -1070 Meds/Results Medications: Active Medications Generic Name Dose Route Start Last Admin Trade Name Freq PRN Reason Stop Dose Admin Acetaminophen 650 mg 03/30/22 14:50 Acetaminophen 325 Mg Tablet PO Q6H PRN Pain Rated 1-3 Cyclobenzaprine HCl 10 mg 03/30/22 14:50 03/31/22 11:02 Cyclobenzaprine Hcl 10 Mg Tablet PO 10 mg Q8H PRN Administration Muscle Spasm Dextrose 12.5 gm 03/29/22 18:11 Dextrose 50% 25 Gm/50 Ml Syringe IV PUSH PRN PRN Hypoglycemia Protocol Famotidine 20 mg 03/30/22 21:00 04/02/22 09:50 Famotidine 20 Mg Tablet PO 20 mg Q12HR KAYLIE Administration Ferrous Sulfate 142 mg 04/02/22 08:45 04/02/22 09:50 Ferrous Sulfate Dried 142 Mg Tabcr PO 142 mg DAILY@0800 KAYLIE Administration Glipizide 2.5 mg 03/30/22 08:00 03/31/22 08:17 Glipizide Xl 2.5 Mg Tab.Er.24 PO 2.5 mg DAILY@0800 KAYLIE Administration Glucagon 1 mg 03/29/22 18:11 Glucagon For Inj 1 Mg Vial IM PRN PRN Hypoglycemia Protocol Glucose 15 gm 03/29/22 18:11 Glucose Oral Gel 15 Gm Of Glucse In 37.5 Gm Tube PO PRN PRN Hypoglycemia Protocol Dextrose 1,000 mls @ 100 mls/hr 03/29/22 18:11 Dextrose 5% 1,000 Ml IVPB PRN PRN Hypoglycemia Protocol Insulin Aspart 2 - 5 units 03/30/22 08:00 04/02/22 08:20 Insulin Aspart (*Bkc) 100 Units/Ml SUB-Q Not Given TIDWM KAYLIE Protocol Morphine Sulfate 2 mg 04/01/22 13:55 Morphine Sulfate (
--- NOTE | 2022-04-02 13:59 | PM.DS ---
DS: Admitting Diagnosis Discharge Date 04/02/22 14:54 Admitting Diagnosis Displaced right trochanteric fracture DS: Discharge Diagnosis Discharge Diagnosis (1) Subtrochanteric fracture of right femur: Qualifiers: Encounter type: initial encounter Fracture type: closed Fracture alignment: displaced Qualified Code(s): S72.21XA - Displaced subtrochanteric fracture of right femur, initial encounter for closed fracture Code(s): S72.21XA - Displaced subtrochanteric fracture of right femur, initial encounter for closed fracture Status: Acute Assessment and Plan: orthopedic surgery consulted s/p ORIF right hip fracture with cephalomedullary nail 03/30/22 post op care as per orthopedics Pain control - Percocet PO, flexeril PO PRN PT/OT post op DVT prophylaxis with lovenox SQ then transitioned to xarelto 10 mg PO daily x 30 days. (2) Normocytic anemia: Code(s): D64.9 - Anemia, unspecified Status: Acute Assessment and Plan: Post operative drop in H/H noted with downward trend. No s/s bleeding. H/H stabilized postop. Ferrous sulfate PO started. (3) Diabetes: Code(s): E11.9 - Type 2 diabetes mellitus without complications Status: Chronic Assessment and Plan: BG check TID AC And HS c/w meal time insulin Hold glipizide while inpatient. Stable. DS: Summary Hospital Course Reason for hospitalization: fall Hospital Course: Ana Driver is a 66-year-old female patient?who presented to ER status post fall.? The patient was stepping off of a concrete step that was deeper than what she thought.? The patient fell on her right side but did not hit her head. She did not lose consciousness.? The patient was not able to get off the ground. Her right leg was externally rotated at the hip and shortened.? White count 15.2.?COVID was negative. hip and pelvis x-ray was read as acute oblique?fracture of right proximal femoral shaft. chest x-ray was read as no acute cardiopulmonary abnormality. IV fluids were started.? Orthopedics was consulted.? She was given morphine in the emergency room for acute.? The patient was admitted to the medical floor floor following right hip or FF and cephalomedullary nailing on 03/30/2022. EBL was 200 mL. She was treated with intra and postop antibiotics. Patient was monitored postoperatively and PT and OT was consulted. did have significant postoperative pain that was managed with p.r.n. Percocet, p.r.n. Flexeril, and morphine IV. She was initially treated with Lovenox subQ for DVT prophylaxis and then transitioned to Xarelto 10 mg p.o. times 30 days upon discharge. Postop hemoglobin was 8.8 and 8.7 and stable. Supplemental iron tablets were initiated. Patient was asymptomatic. Concerns were expressed as patient had difficulty participating with physical therapy due to postop pain initially. SNF rehab was discussed with the patient and she emphatically refused. She wanted to be discharged home with her daughter and that she reports would assist her with daily activities. The patient initially refused home health services, however after further discussion and encouragement she was agreeable to home PT. Status at Discharge Cognitive/behavioral status at discharge: Alert and oriented x4. Pleasant Functional status at discharge: uses cane/walker Overall status at discharge: patient is progressing back to baseline Time Spent with Patient Time attestation: Total time spent providing and/or coordinating discharge services: Time spent: Greater than 30 minutes Exam Narrative: General: No acute distress. Neuro: awake, alert and oriented x4, speech clear, no focal neuro deficits noted HEENMT: normocephalic, atraumatic, EOMI, sclerae anicteric Respiratory: clear to auscultation bilaterally, nonlabored breathing Cardio: regular rate, regular rhythm with S1-S2. No murmurs, gallops or rubs. Abdomen: soft, obese, nondis
[2022-04-02 14:00] VITALS: BP 147/60; PULSE 87; RESP 18; TEMP 36.7; O2SAT 100
== END 2022-04-02 16:34 | disposition home health service (06) | DRG 482 ==
LOC: ANHED 07:03 → ANH3MEDSUR 08:54
PROVIDERS: Internal Medicine; Nurse Practitioner; Nurse Practitioner Family; Orthopaedic Surgery; Admitting Provider Internal Medicine; Emergency Provider Emergency Medicine; PCP Anesthesiology; Visit Provider Physician Assistant
PROC: 0QS636Z Reposition Right Upper Femur with Intramedullary Internal Fixation Device, Percutaneous Approach (ICD-10-PCS; CPT 27245; principal; 2022-03-30 10:30)
DX: S72.21XA Displaced subtrochanteric fracture of right femur, initial encounter for closed fracture (principal); E11.9 Type 2 diabetes mellitus without complications; W19.XXXA Unspecified fall, initial encounter; Z20.822 Contact with and (suspected) exposure to COVID-19
CPT/HCPCS: 36415; 71045; 73502; 80048; 80053; 82728; 82948; 83036; 83605; 83615; 83735; 84439; 84443; 84480; 85025; 85027; 85055; 85610; 85730; 86140; 86850; 86900; 86901; 93005; 96374; 97110; 97161; 97165; 97530; 97535; 99199; 99285; A9270; C1713; C9803; G0378; J0330; J0690; J1100; J1170; J1650; J1815; J2250; J2270; J2370; J2405; J2710; J3010; J7030; J7120; U0003; U0005

== ENCOUNTER 2022-05-19 09:04 | Outpatient (CLI) | payer MEDICARE, SELFPAY ==
--- NOTE | ~2022-05-19 | US_ITS ---
EXAMINATION: US right upper quadrant DATE: 05/19/2022 09:47 INDICATION: Elevated liver enzymes TECHNIQUE: Multiple grayscale and Doppler ultrasound images of the abdomen were obtained. COMPARISON: None available FINDINGS: The head and body of the pancreas are normal. The pancreatic tail is obscured by bowel gas. The liver demonstrates increased echogenicity, heterogenous echotexture, and decreased through trans mission. No surface nodularity. Normal hepatopetal flow in the main portal vein. The gallbladder is n ormal with no abnormal wall thickening, pericholecystic fluid or stones. The normal common bile duct measures 3 mm. There was no sonographic Escalante sign. IMPRESSION: 1. Diffuse hepatic steatosis. Reviewed, dictated and finalized at location A.
== END 2022-05-19 09:05 | disposition home or self-care (01) ==
PROVIDERS: PCP Student in an Organized Health Care Education/Training Program; Visit Provider Student in an Organized Health Care Education/Training Program
DX: R74.8 Abnormal levels of other serum enzymes (principal); K76.0 Fatty (change of) liver, not elsewhere classified
CPT/HCPCS: 76705

== ENCOUNTER 2022-07-10 12:30 | Outpatient (RCR) | payer MEDICARE, SELFPAY ==
--- NOTE | 2022-05-14 15:06 | PTOPEVAL1 ---
Assessment and note entered by Zuly Lobo, PT Evaluation Information Assessment Status Evaluation Diagnosis R hip ORIF due to fall Onset 03-30-22 Subjective Information have completed [facility] PT treatments; use the wheeled walker for walking and out in community for short distances; doing leg exercises from previous therapy--standing and sitting ones mostly; Reported Pain Level Pain Score Self Report Additional Pain Score Comments pain range in R hip of 3-10/10;lateral hip, lateral thigh and superior knee; sleep on back, then problems with lying on her L or R side-- educated on use of pillow between LE's- has not been doing; pain awakens her from sleeping ~ 3x/ night; instruct on use of heat or ice PRN- has not been doing; is taking prescription pain med 1-2 at night for sleeping and 1 during day--usually total of 2-3/ day; Assessment PT Clinical Summary Ana is s/p R ORIF of femur/hip due to fall. She has completed [facility] PT services, is WBAT on R LE and using a wheeled walker; and adult daughter assist her PRN at home. She is not working at this time,but wants to return to her [employer] job. Prior to fall, she was active and indep with all tasks. With the evaluation, she has decreased strength of R hip and knee; requires the wheeled walker for ambulation due to weakness of R LE; 5 reps sit/ stand time is 23 seconds and 2 minute walking distance is 300'. Skilled PT services are indicated for modalities to decrease pain, therapeutic exercises to increase flexibility and strength of R hip and knee, with education for progression of assistive device and HEP. Plan of Care Interventions Electrical Stimulation,Hot Pack/Cold Pack,Manual Therapy,Neuro Re-education,Patient/Caregiver Education,Therapeutic Activities,Therapeutic Exercise PT Services Indicated Yes Treatment Frequency and 2x/wk for 4 weeks Duration These treatments will address the objective and functional deficits as defined above. The patient will be advanced safely and appropriately in order for the patient to progress towards his/her prior level of function. Additional exercises will be introduced and as well as a comprehensive home exercise program upon discharge, if needed, ?to ensure carryover of functional gains achieved in the clinic. T
--- NOTE | 2022-06-10 10:17 | PCPTNOTE ---
pt called and canceled treatment appt today;
--- NOTE | 2022-06-12 15:19 | PTOPPROG ---
Assessment and note entered by Zuly Lobo, PT Evaluation Information Assessment Status Progress Diagnosis R hip ORIF due to fall Onset 03-30-22 Subjective Information Ana reports: still wobble when she walks, walking is better but still have to use the cane; only few little steps in kitchen without anything had eye surgery on her R eye and L next week-- vision a little off; pain of R leg 5-7/10, sometimes in knee, but usually side of hip and thigh; during sleep, wake up 2x/night due to hip pain; feels like she needs more therapy to get stronger and walk better; Assessment PT Clinical Summary Ana has received 8 PT sessions. Electrical stim heat and ice help to decrease her pain. Compared to the initial evaluation: she has improved with: decreased pain rating from 3-10/10 to 5-7/10; strength of R hip with mat exercises and single leg standing; 5 reps sit/stand improved by 1 second; Gait has progressed from wheeled walker to cane; education for home exercises. The 2 minute walking test distance has decreased by 50' but initially used wheeled walker and is now using the cane. With her gait pattern, she continues to limp on R LE due to pain and weakness. Skilled PT is to continue, to increase strength and WB on R LE and decrease pain. Plan of Care Interventions Electrical Stimulation,Hot Pack/Cold Pack,Manual Therapy,Neuro Re-education,Patient/Caregiver Education,Therapeutic Activities,Therapeutic Exercise,Other Other Interventions taping PT Services Indicated Yes Treatment Frequency and 2x/wk for 4 weeks Duration These treatments will address the objective and functional deficits as defined above. The patient will be advanced safely and appropriately in order for the patient to progress towards his/her prior level of function. Additional exercises will be introduced and as well as a comprehensive home exercise program upon discharge, if needed, ?to ensure carryover of functional gains achieved in the clinic. This treatment plan has been reviewed and agreement upon by the patient.
--- NOTE | 2022-07-10 13:13 | PTOPDC ---
Assessment and note entered by Zuly Lboo, PT Evaluation Information Assessment Status Discharge Diagnosis R hip ORIF due to fall Onset 03-30-22 Subjective Information Ana reports: hip is better- walking easier and more, been shopping for ~ 1 & 1/2 hours; is doing her exercises at home, 10-20 reps; taking prescription pain med at night for sleeping and PRN when more active; uses the cane when going out, but in house usually does not use it--holds onto furniture if need; agree to discharge from PT. Reported Pain Level Pain Score Self Report Additional Pain Score Comments pain range of 2-6/10; with sleeping, awaken from pain if roll onto R side--1-2x/week; discussed placing a pillow to block her from rolling onto her R side; uses ice on hip. Assessment PT Clinical Summary Ana has received 14 PT sessions. Compared to the last reeval: pain rating at low and high rating has improved 5-7/10 to 2-6/10; improved with: activity level/walking tolerance; with sleeping less awakening due to pain; strength of R hip; 2 minute walking test distance of 50'; 5 reps sit/stand time by 2 seconds; gait with cane; no problems on stairs or getting on/off floor. Goals were achieved, except 2 minute walk test and 5 reps sit/stand time. She is independent with her home exercises. And has been instructed to walk with the cane until she no longer limps on the R without the cane, and understands this. Discharge PT services. Plan of Care PT Services Indicated No
== END 2022-07-10 13:42 | disposition home or self-care (01) ==
LOC: ANHPT 12:30
PROVIDERS: PCP Anesthesiology; Visit Provider Orthopaedic Surgery
DX: Z47.89 Encounter for other orthopedic aftercare (principal)
CPT/HCPCS: 97014; 97110; 97112; 97161; 97530; G0283

== ENCOUNTER 2022-09-15 10:25 | Outpatient (CLI) | payer MEDICARE, SELFPAY ==
[2022-09-15 11:11] LABS: Basophils Absolute Auto 0.1 K/mm3 (0.0-0.1); Basophils Percent Auto 0.8 % (0.2-1.2); Eosinophils Absolute Auto 0.2 K/mm3 (0-0.3); Eosinophils Percent Auto 2.7 % (0-4.4); Hematocrit 40.5 % (37.0-47.0); Hemoglobin 13.4 g/dL (12.0-15.0); Immature Granulocyte Absolute 0.02 K/mm3 (0.00-0.031); Immature Granulocyte Percent A 0.3 % (0-0.5); Lymphocytes Absolute Auto 2.29 K/mm3 (0.9-3.2); Lymphocytes Percent Auto 36.4 % (18.3-44.2); Mean Corpuscular HGB Conc 33.1 g/dl (32-36); Mean Corpuscular Volume 93.8 fl (80-100); Mean Platelet Volume 12.8 fl (7.4-10.4); Monocytes Absolute Auto 0.7 K/mm3 (0.1-0.6); Monocytes Percent Auto 10.8 % (2.6-8.5); Neutrophils Absolute Auto 3.1 K/mm3 (1.3-6.7); Platelet Count Result 172 k/mm3 (150-375); Red Blood Count 4.32 M/mm3 (4.2-5.4); White Blood Count 6.3 K/mm3 (4.5-10.0)
[2022-09-15 11:29] LABS: Alanine Aminotransferase 30 U/L (6-35); Alkaline Phosphatase 145 U/L (38-126); Anion Gap 7 mmol/L (8-16); Aspartate Amino Transferase 31 U/L (14-36); Blood Urea Nitrogen 13 mg/dL (7-17); Carbon Dioxide 30 mmol/L (22-30); Chloride 103 mmol/L (98-107); Cholesterol 207 mg/dL (0-200); Estimated Glomerular Filt Rate > 60; Glucose 158 mg/dL (65-110); HDL Direct 40 mg/dL; Sodium 140 mmol/L (137-145); Triglycerides 83 mg/dL (<150)
[2022-09-15 11:39] LABS: LDL Cholesterol Direct 117 mg/dL
[2022-09-15 11:45] LABS: Bilirubin,Total 0.5 mg/dL (0.2-1.3)
[2022-09-15 11:58] LABS: Microalbumin Urine Random 29.2 mg/L (0-16.7)
[2022-09-15 11:59] LABS: Creatinine Urine 127.1 mg/dL
[2022-09-15 12:10] LABS: Vitamin D 25 Hydroxy < 12.8 ng/mL
== END 2022-09-15 10:26 | disposition home or self-care (01) ==
LOC: ANHLAB 10:29
PROVIDERS: PCP Student in an Organized Health Care Education/Training Program; Visit Provider Student in an Organized Health Care Education/Training Program
DX: E11.9 Type 2 diabetes mellitus without complications (principal); Z68.35 Body mass index [BMI] 35.0-35.9, adult; E78.01 Familial hypercholesterolemia
CPT/HCPCS: 36415; 80053; 80061; 82043; 82306; 84443; 85025

== ENCOUNTER 2022-10-09 16:37 | Outpatient (CLI) | payer MEDICARE, MEDICAID, SELFPAY ==
--- NOTE | ~2022-10-09 | MM_ITS ---
EXAMINATION: MM screening tita BI w bria HISTORY: Screening mammogram TECHNIQUE: Craniocaudal and mediolateral oblique 3-D tomosynthesis images were obtained and synthetic 2-D images were generated. CAD analysis was submitted and interpreted. COMPARISON: 01/30/2021, 08/02/2018 bilateral screening mammogram examinations BREAST PARENCHYMAL COMPOSITION: There are scattered areas of fibroglandular density. FINDINGS: There is no evidence of suspicious mass, calcification, or architectural distortion to sugg est malignancy in either breast. There has been no suspicious interval change. IMPRESSION: 1. No mammographic evidence of malignancy. 2. Recommend routine screening mammography in one year. BI-RADS Category 1: Negative Reviewed, dictated and finalized at location B. [employer]
== END 2022-10-09 16:38 | disposition home or self-care (01) ==
PROVIDERS: PCP Student in an Organized Health Care Education/Training Program; Visit Provider Student in an Organized Health Care Education/Training Program
DX: Z12.31 Encounter for screening mammogram for malignant neoplasm of breast (principal)
CPT/HCPCS: 77063; 77067